=== PATIENT | male | born 1955 | race Hispanic/Latino ===

== ENCOUNTER 2019-03-19 15:06 | Outpatient (CLI) | payer BC ==
--- NOTE | 2019-03-19 15:40 | RAD ---
XR Knee Rt 3 View HISTORY: Effusion, right knee pain FINDINGS: No fracture or dislocation is identified. Degenerative changes are present. A joint effusion is seen.
== END 2019-03-19 15:07 | disposition home or self-care (01) ==
LOC: BICRAD 15:06
PROVIDERS: ATTEND Family Medicine
DX: M25.461 Effusion, right knee (principal); Z00.00 Encounter for general adult medical examination without abnormal findings; E11.65 Type 2 diabetes mellitus with hyperglycemia
CPT/HCPCS: 81001; 82043; 87086

== ENCOUNTER 2019-07-05 07:42 | Outpatient (CLI) | payer BC ==
--- NOTE | 2019-07-05 11:01 | CT ---
CT OF CHEST AND ABDOMEN AND PELVIS PERFOMED WITH INTRAVENOUS CONTRAST ENHANCEMENT: HISTORY: Patient diagnosed with colon cancer June 27. This is done for staging. FINDINGS: The lungs are clear of any infiltrative process. There is a superior segment left upper lobe pulmona ry nodule seen in the most superior aspect of the lower lobe. It abuts the major fissure and measure s 7 mm in size. No additional nodules are identified. No pleural effusion. There is no significant mediastinal or hilar adenopathy. There is no significant axillary lymphadeno bety noted. A pacemaker device is present. CT OF ABDOMEN PERFORMED WITH CONTRAST ENHANCEMENT: Liver shows some fatty change. There are 2 somewhat ill-defined low-attenuation densities within the right lobe, one which is in the region of the dome of the liver. This measures approximately [address] Hounsfield unit numbers are 50. The second lesion is also near the dome of the liver. It is approximately 2.3 cm. These would be suspicious for liver masses. The spleen and pancreas reg ions appear unremarkable. The gallbladder is also normal in appearance. Right and left adrenal glands are normal. Right and left kidneys are normal in size. A small exophy tic hypodensity involving the anterior cortex of the left kidney is most compatible with a cyst. The re is no significant periaortic adenopathy. There is a mass-like area within the ascending colon wit h pericolonic fat stranding. This appears to be the location of the patient's mass. There are some associated small ileocolic lymph nodes in this region. These are all in the 1 cm range. The appendi x is retrocecal in location, normal in size. CT OF PELVIS PERFORMED WITH CONTRAST ENHANCEMENT: Sigmoid diverticulosis is noted. Slight bladder wall prominence may be on the basis of some element of bladder outlet obstruction. No pelvic lymphadenopathy is demonstrated. Review of osseous structures shows arthritic changes of the spine. I do not see any lytic bony javed es. A small sclerotic density in the right side of the symphysis region is felt to represent a bone island. IMPRESSION: 1. Right colon mass. There is some pericolonic fat stranding and some small but slightly numerous i leocolic lymph nodes directly adjacent to this region. 2. There are 2 vague hypodense lesions within the right lobe of the liver which would have to be vie wed with suspicion for metastatic liver disease. 3. An 8 mm superior segment left lower lobe pulmonary nodule which is pleural based along the major fissure. Followup of this lesion is recommended. POS: TPC
[2019-07-05] MEDS ORDERED: Iopamidol 370 76% 100 ML VIAL ONE (15:06)
== END 2019-07-05 07:43 | disposition home or self-care (01) ==
LOC: CT 07:42
PROVIDERS: ATTEND Internal Medicine
DX: K63.89 Other specified diseases of intestine (principal); K76.89 Other specified diseases of liver; R91.1 Solitary pulmonary nodule
CPT/HCPCS: 71260; 74177; 82378; 82565; Q9967

== ENCOUNTER 2019-07-17 14:13 | Outpatient (CLI) | payer BC ==
--- NOTE | 2019-07-17 14:31 | PET ---
Radionucleotide PET scan with CT attenuation correction HISTORY: Colon cancer. Initial staging. FINDINGS: Physiologic uptake of radiotracer throughout the enteric system and along each urinary trac t. Muscular uptake about the shoulders and chest. Slightly increased uptake associated with degenerative changes of each acromioclavicular joint. Within the lateral dome of the right liver lobe, the hypermetabolic activity associated with the 2 ad jacent low density masses on recent CT is confluent, maximum SUV 9.5. In the region of subcentimeter nodule within the superior segment left lower lobe lung, no hypermetab olic activity is apparent. Increased activity associated with the large mass of the right colon shows maximum SUV of 23.8. No other areas of abnormal radiotracer uptake. IMPRESSION: Neoplasm of the right colon with metastatic lesion of the right liver lobe.
== END 2019-07-17 14:14 | disposition home or self-care (01) ==
LOC: PET 14:13
PROVIDERS: ATTEND Internal Medicine Hematology & Oncology
DX: C18.9 Malignant neoplasm of colon, unspecified (principal); C78.7 Secondary malignant neoplasm of liver and intrahepatic bile duct
CPT/HCPCS: 78815; A9552

== ENCOUNTER 2019-08-03 06:43 | Day surgery (SDC) | payer BC ==
[2019-08-03] MEDS ORDERED: Fentanyl 100 MCG/2 ML VIAL ONE (07:01)
[2019-08-03] MEDS ORDERED: Ampicillin 2 GM VIAL ONE (07:57)
[2019-08-03 07:58] LABS: #Basophils 0.1 thou/uL (0.0-0.2); #Eosinphils 0.1 thou/uL (0.0-0.7); #Lymphocytes 2.1 thou/uL (1.20-3.40); #Monocytes 0.7 thou/uL (0.11-0.59); %Basophils 1.3 % (0.0-1.0); %Eosinophils 1.3 % (0.0-10.0); %Lymphocytes 35.7 % (21.0-51.0); %Monocytes 11.1 % (0.0-10.0); %Neutrophils 50.6 % (42.0-75.0); Hemoglobin 8.1 g/dL (14.0-18.0); Mean Corpuscular HGB CONC 30.3 g/dL (32.0-36.0); Mean Corpuscular Hemoglobin 21.7 pg (27.0-31.0); Mean Corpuscular Volume 71.7 fL (78.0-98.0); Mean Platelet Volume 9.3 fL (7.4-10.4); Platelet Count 251 thou/uL (130-400); RBC Distribution Width 25.5 % (11.5-14.5); Red Blood Cell (RBC) Count 3.71 mill/uL (4.70-6.10)
[2019-08-03 08:24] LABS: Hypochromia MODERATE=16-30 cells (100X) (0-5/hpf); MDiff Complete? YES; Microcytosis MODERATE=15-30 cells (100X) (0-5/hpf); Platelet Morphology Comment Appears Adequate; Polychromasia SLIGHT = 2-3 cells (100X) (0-2/hpf); Reflex for Review?? NO
[2019-08-03 08:25] LABS: Anion Gap 10 mmol/L (10-20); BUN (Urea Nitrogen) 15 mg/dL (8.4-25.7); Calc. Creatinine Clearance 0 mL/min (70-130); Calcium 9.1 mg/dL (7.8-10.44); Carbon Dioxide 26 mmol/L (23-31); Chloride 106 mmol/L (98-107); Estimated GFR-MDRD 87; Glucose 137 mg/dL (80-115); Potassium 4.7 mmol/L (3.5-5.1); Sodium 137 mmol/L (136-145)
[2019-08-03] MEDS ORDERED: Bupivacaine 0.25% HCL 30 ML VIAL ONE (08:59)
[2019-08-03] MEDS ORDERED: Lidocaine 1% w/Epinephrine 1:100K 20 ML VIAL ONE (08:59)
--- NOTE | 2019-08-03 10:41 | RAD ---
XR Chest 1 View HISTORY: Mediport placement COMPARISON: 02/17/2015 FINDINGS: There has been placement of a right-sided Port-A-Cath with tip in the projection of the SVC . A left-sided pacemaker device is again seen. The heart size is enlarged. The lungs are well expanded without focal areas of consolidation, pneumothorax or pleural effusions. IMPRESSION: No radiographic evidence of acute cardiopulmonary process.
[2019-08-03] MEDS ORDERED: Lidocaine 1% PF 5 ML VIAL ONE (11:00)
[2019-08-03] MEDS ORDERED: PROPOFOL 200 MG/20 ML VIAL ONE (11:00)
[2019-08-03] MEDS ORDERED: ePHEDrine/0.9% NaCl/PF SYRINGE 50 mg/10 ml ONE (11:00)
--- NOTE | 2019-08-03 16:22 | PDOC.OP ---
Operative Note - Operative Note Operative Note: PROCEDURE: Right internal jugular MediPort placement with ultrasound and fluoroscopic guidance DATE OF PROCEDURE: 08/03/2019 SURGEON: Ruby Lopez M.D. COATING LINE WORKER: Bimal Smith MS 3 PREOPERATIVE DIAGNOSIS: Metastatic colon cancer POSTOPERATIVE DIAGNOSIS: Metastatic colon cancer HISTORY: Patient has been diagnosed with colon cancer metastatic to the liver. Chemotherapy has been recommended and a Mediport has been requested for this. OPERATIVE PROCEDURE IN DETAIL: After informed consent was obtained and appropriate preoperative antibiotics administered, the patient was taken to the operating room and placed in supine position and monitored anesthesia care was administered. The patient was then placed in Trendelenburg position and the patent compressible right internal jugular vein accessed easily on the first attempt under direct ultrasound guidance with excellent flow of dark venous non- pulsatile blood. A wire threaded easily and was confirmed to be in the compressible vein by ultrasound and with the tip in the superior vena cava by fluoroscopy. Additional local anesthesia was infused to the skin and subcutaneous tissues of the right neck and chest. A skin incision was made on the right chest and a subcutaneous pocket developed inferiorly. A Mediport was obtained and confirmed to fit in the subcutaneous pocket. This was secured inferiorly to the pectoralis fascia with a Prolene suture, which was clamped, but not tied. Mediport tubing was then tunneled from the chest to the right IJ access site subcutaneously. The dilator and sheath were then placed over the wire and the dilator and wire removed leaving the sheath in place. The clamped MediPort tubing was tunneled through the sheath, which was then split and removed leaving the MediPort tubing in place. The tubing was adjusted until the tip was confirmed by fluoroscopy to be in the superior vena cava just above the atrium. The tubing was clamped at the skin level and cut and the tubing secured to the port, which was then placed in the subcutaneous pocket. The previously placed suture was secured and two additional sutures were placed to fix the port in place within the pocket. The port was aspirated with the Guevara needle and had excellent flow of dark venous non-pulsatile blood and easily flushed without resistance. The subcutaneous tissues were closed with a running Monocryl suture, following which the skin was closed with a running subcuticular Monocryl suture. Dermabond dressings were placed. The course of the catheter was confirmed by fluoroscopy to be smooth with the tip appropriately located in the superior vena cava. The patient was taken back to recovery in good condition. Estimated blood loss was minimal. There were no complications. There were no specimens.
== END 2019-08-03 12:15 | disposition home or self-care (01) ==
LOC: SDC 06:43
PROVIDERS: ATTEND Surgery
PROC: 02HV33Z Insertion of Infusion Device into Superior Vena Cava, Percutaneous Approach (ICD-10-PCS; principal; 2019-08-03)
DX: C18.9 Malignant neoplasm of colon, unspecified (principal); C78.7 Secondary malignant neoplasm of liver and intrahepatic bile duct; E11.9 Type 2 diabetes mellitus without complications; I10 Essential (primary) hypertension; Z79.84 Long term (current) use of oral hypoglycemic drugs; Z79.899 Other long term (current) drug therapy; Z88.8 Allergy status to other drugs, medicaments and biological substances; Z95.0 Presence of cardiac pacemaker
CPT/HCPCS: 36415; 71045; 80048; 85025; C1788; J0290; J0690; J1642; J2001; J2704; J3010; S0020

== ENCOUNTER 2019-08-13 01:00 | Emergency (ER) | payer BC ==
--- NOTE | 2019-08-13 08:44 | RAD ---
LUMBAR SPINE 3 VIEWS: Date: 08/13/19 HISTORY: Back pain. FINDINGS: Lumbar vertebra maintain height and alignment. There are degenerative hypertrophic changes. Large spu r projects laterally on the right at L2-3. Anterior bridging osteophytes at L5-S1. Loss of disc space at L5-S1. Moderate facet hypertrophy at L4-5 and L5-S1. No evidence of spondylolisthesis. No kenton ryland deformity or acute fracture identified. IMPRESSION: Degenerative changes as described. POS: NAHID
== END 2019-08-13 03:30 | disposition home or self-care (01) ==
LOC: ERS 01:00
DX: M54.5 Low back pain (principal); E11.9 Type 2 diabetes mellitus without complications; I10 Essential (primary) hypertension
CPT/HCPCS: 72100

== ENCOUNTER 2020-02-07 07:09 | Day surgery (SDC) | payer BC ==
[2020-02-07] MEDS ORDERED: Sodium Bicarbonate 2.5 MEQ/5 ML VIAL ONE (07:52)
[2020-02-07] MEDS ORDERED: Lidocaine 1% PF 5 ML VIAL ONE (07:53)
[2020-02-07 07:54] LABS: #Eosinphils 0.1 thou/uL (0.0-0.7); #Lymphocytes 2.1 thou/uL (1.20-3.40); #Monocytes 0.9 thou/uL (0.11-0.59); #Neutrophils 4.6 thou/uL (1.40-6.50); %Basophils 0.1 % (0.0-1.0); %Eosinophils 0.7 % (0.0-10.0); %Lymphocytes 27.6 % (21.0-51.0); %Monocytes 11.8 % (0.0-10.0); %Neutrophils 59.7 % (42.0-75.0); Hemoglobin 12.5 g/dL (14.0-18.0); Mean Corpuscular HGB CONC 32.9 g/dL (32.0-36.0); Mean Corpuscular Hemoglobin 32.5 pg (27.0-31.0); Mean Corpuscular Volume 98.8 fL (78.0-98.0); Mean Platelet Volume 8.4 fL (7.4-10.4); Platelet Count 97 thou/uL (130-400); RBC Distribution Width 15.4 % (11.5-14.5); Red Blood Cell (RBC) Count 3.85 mill/uL (4.70-6.10); White Blood Cell (WBC) Count 7.6 thou/uL (4.8-10.8)
[2020-02-07 08:05] LABS: INR-International Normal Ratio 1.5; Prothrombin Time 18.1 sec (12.0-14.7)
--- NOTE | 2020-02-07 08:58 | ULT ---
Exam: Ultrasound guided thoracentesis HISTORY: Right-sided pleural effusion Comparison 01/28/2020 FINDINGS: Successful right sided thoracentesis. A total of 2 L of yellow color pleural fluid was evac uated. There are no immediate or postprocedure complications TECHNIQUE: Consent obtained to perform a right sided cyst. Right hemithorax was evaluated. Skin was p repped and draped in a sterile fashion. 1% lidocaine, buffered with sodium bicarbonate was used for local anesthesia. Under sonographic guidance, a 5 [place] UV catheter was advanced in the pleural spac e. Via vacuum bottles, 2 L of yellow color pleural fluid was aspirated. Patient tolerated the procedure well. No immediate or postprocedure complications IMPRESSION: Successful right-sided thoracentesis with ultrasound guidance
--- NOTE | 2020-02-07 09:04 | RAD ---
Exam: Upright inspiratory and expiratory chest radiograph HISTORY: Status post right-sided ultrasound-guided thoracentesis COMPARISON: 02/04/2020, 01/28/2020 FINDINGS: Portable upright inspiratory and expiratory chest radiograph demonstrate a left-sided trans venous pacemaker, unchanged in lead position. Stable right-sided Port-A-Cath. Normal cardiac silhouette. No significant pericardial fluid. There are bibasilar lung parenchymal opacities which may represent atelectasis, pneumonia or aspiration. No pneumothorax IMPRESSION: 1. No significant pleural effusion 2. No evidence of pneumothorax.
[2020-02-07 09:13] VITALS: BP 96/63; TEMP 96.2; BMI 41.1
[2020-02-07] MEDS ORDERED: Sodium Chloride 0.9% 10 ML ONE (10:11)
--- NOTE | 2020-02-07 10:26 | RAD ---
Exam: Upright inspiratory and right chest radiograph COMPARISON: 01/28/2020 at 8:55 AM HISTORY: Right-sided thoracentesis FINDINGS: Upright inspiratory chest radiograph demonstrates stable cardiac silhouette, atherosclerosi s and pleural/parenchymal changes lung bases. Stable left-sided transvenous pacemaker and right-sided Port-A-Cath. No pneumothorax IMPRESSION: No pneumothorax
[2020-02-07 10:41] LABS: PTT Greater than 250.0 sec (22.9-36.1)
== END 2020-02-07 10:15 ==
LOC: ULT 07:09
PROVIDERS: ATTEND Internal Medicine
PROC: 0BJQ3ZZ Inspection of Pleura, Percutaneous Approach (ICD-10-PCS; principal; 2020-02-07)
PROC: BB4BZZZ Ultrasonography of Pleura (ICD-10-PCS; principal; 2020-02-07)
DX: J90 Pleural effusion, not elsewhere classified (principal); M33.20 Polymyositis, organ involvement unspecified; I10 Essential (primary) hypertension; E11.9 Type 2 diabetes mellitus without complications; I73.9 Peripheral vascular disease, unspecified; Z79.4 Long term (current) use of insulin; Z79.899 Other long term (current) drug therapy
CPT/HCPCS: 71045; 76942; 85610; 85730; J1642; J2001

== ENCOUNTER 2020-02-25 07:58 | Day surgery (SDC) | payer BC ==
[2020-02-21 11:54] VITALS: BMI 40.2
[~2020-02-25 07:58] MED LIST: Prevnar 13-Val Conj/PF 0.5 ML SYRINGE IM ONE
[2020-02-25] MEDS ORDERED: Lidocaine 1% PF 5 ML VIAL ONE (08:17)
[2020-02-25] MEDS ORDERED: Sodium Bicarbonate 2.5 MEQ/5 ML VIAL ONE (08:17)
--- NOTE | 2020-02-25 09:37 | ULT ---
Sonographic guided paracentesis HISTORY: Symptomatic ascites. FINDINGS: After explaining the procedure and answering all questions, sonographic survey showed free fluid throughout the abdomen. Largest pocket in the right abdomen. Sterile technique, buffered local anesthesia, sonographic guidance, and a right lateral approach were used to carefully advance a 19-gauge Yueh needle and catheter into the free fluid. Catheter was left to drain a total volume of 3.5 L light yellow liquid. Catheter was removed with minimal fluid remaining. Patient tolerated the procedure well and was dismi ssed in good condition. IMPRESSION : Technically successful sonographic guided paracentesis. 3.5 L fluid.
[2020-02-25 10:54] VITALS: BP 101/65; TEMP 97.6
== END 2020-02-25 09:45 | disposition home or self-care (01) ==
LOC: ULT 07:58
PROVIDERS: ATTEND Physician Assistant Medical
PROC: BW40ZZZ Ultrasonography of Abdomen (ICD-10-PCS; principal; 2020-02-25)
PROC: 0W9G3ZZ Drainage of Peritoneal Cavity, Percutaneous Approach (ICD-10-PCS; principal; 2020-02-25)
DX: R18.8 Other ascites (principal); I10 Essential (primary) hypertension; E11.9 Type 2 diabetes mellitus without complications; D64.9 Anemia, unspecified; C18.9 Malignant neoplasm of colon, unspecified; C78.7 Secondary malignant neoplasm of liver and intrahepatic bile duct; K21.9 Gastro-esophageal reflux disease without esophagitis; I81 Portal vein thrombosis; Z79.4 Long term (current) use of insulin; Z79.899 Other long term (current) drug therapy; Z95.0 Presence of cardiac pacemaker
CPT/HCPCS: 49083; J2001

== ENCOUNTER 2020-03-13 15:36 | Inpatient (IN) | payer BC, OTHER ==
[2020-03-13 16:44] LABS: #Lymphocytes 0.5 thou/uL (1.20-3.40); #Monocytes 0.3 thou/uL (0.11-0.59); #Neutrophils 13.6 thou/uL (1.40-6.50); %Basophils 0.2 % (0.0-1.0); %Lymphocytes 3.7 % (21.0-51.0); %Monocytes 2.3 % (0.0-10.0); %Neutrophils 93.7 % (42.0-75.0); Mean Corpuscular HGB CONC 32.8 g/dL (32.0-36.0); Mean Corpuscular Hemoglobin 32.5 pg (27.0-31.0); Mean Platelet Volume 10.7 fL (7.4-10.4); Platelet Count 85 thou/uL (130-400); Red Blood Cell (RBC) Count 3.37 mill/uL (4.70-6.10); White Blood Cell (WBC) Count 14.5 thou/uL (4.8-10.8)
[2020-03-13 16:45] LABS: Base Excess-Venous 2.2 mmol/L (-2.0 to 3.0); Bicarbonate (HCO3v) 26.9 mmol/L (22.0-28.0); CO2 Tension (PvCO2) 41.1 mmHg (40.0-50.0); Calcium, Ionized 1.27 mmol/L (See Comments:); Chloride 96 mmol/L (98-107); Hemoglobin - Calc 11.9 g/dL (14.0-18.0); Potassium 5.2 mmol/L (3.5-5.1); Sodium 136 mmol/L (138-145); T. Carbon Dioxide 28.1 mmol/L (22.0-28.0); vO2 Saturation-calc 64.1 % (60.0-85.0)
--- NOTE | 2020-03-13 16:45 | RAD ---
Exam: Chest one view HISTORY:Altered mental status. Uterine cancer. Comparison: 01/28/2020 FINDINGS: Lines and tubes: Stable left-sided dual-lead transvenous pacemaker and right-sided Port-A-Cath. Cardiac silhouette:Normal cardiac silhouette Aorta: Atherosclerosis Pulmonary vessels: Normal Costophrenic angles: Clear LUNGS: No masses or consolidation. Chronic changes in the lung bases. Pneumothorax: None Osseous abnormalities: None IMPRESSION: 1. Atherosclerosis 2. No acute cardiopulmonary process. 3. Chronic changes in the lung bases.
[2020-03-13 16:49] LABS: INR-International Normal Ratio 1.5; PTT 26.6 sec (22.9-36.1); Prothrombin Time 17.8 sec (12.0-14.7)
[2020-03-13 17:03] LABS: ALT (SGPT) 93 U/L (8-55); AST (SGOT) 66 U/L (5-34); Albumin 2.1 g/dL (3.4-4.8); Alkaline Phosphatase 391 U/L (40-110); Anion Gap 19 mmol/L (10-20); BUN (Urea Nitrogen) 83 mg/dL (8.4-25.7); CK (CPK) 70 U/L (30-200); Calc. Creatinine Clearance 0 mL/min (70-130); Calcium 9.5 mg/dL (7.8-10.44); Carbon Dioxide 23 mmol/L (23-31); Chloride 95 mmol/L (98-107); Estimated GFR-MDRD 37; Globulin 3.7 g/dL (2.4-3.5); Glucose 246 mg/dL (80-115); Potassium 5.2 mmol/L (3.5-5.1); Protein, Total 5.8 g/dL (5.8-8.1); Sodium 132 mmol/L (136-145)
[2020-03-13 17:20] LABS: Bacteria/HPF 4+ HPF (None Seen); Bilirubin Negative (Negative); Blood, Urine 2+ (Negative); Clarity Turbid (Clear); Glucose, Urine (Dipstick) Normal (Negative); Ketone, Urine Negative (Negative); Leukocyte 250 Leu/uL (Negative); Nitrite Negative (Negative); Protein, Urine (Dipstick) Negative (Neg-Trace); RBC/HPF 0-3 HPF (0-3); Specific Gravity, Urine 1.016 (1.002-1.036); Squamous Epithelial None Seen HPF (0-3); Urobilinogen 3 mg/dL (Less than 2); WBC/HPF 21-50 HPF (0-3)
[2020-03-13 17:26] LABS: CKMB 5.1 ng/mL (0-6.6)
[2020-03-13] MEDS ORDERED: cefTRIAXone\\ROCEPHIN 2 GM VIAL ONE (17:36)
[2020-03-13] MEDS ORDERED: Ondansetron PF 4 MG/2 ML Vial ONE (17:36)
--- NOTE | 2020-03-13 18:30 | CT ---
CT HEAD WITHOUT IV CONTRAST COMPARISON: None HISTORY: Altered mental status. TECHNIQUE: Axial CT imaging at 5 mm intervals from vertex through skull base without contrast FINDINGS: There is no evidence of an acute infarction, hemorrhage, mass effect, or midline shift. The ventricul ar system is normal in size, shape, and position. Visualized paranasal sinuses are clear. Osseous structures appear intact. IMPRESSION: 1. No acute intracranial abnormality demonstrated.
[2020-03-13] MEDS ORDERED: Dextrose 50% Abboject 50 ML SYRINGE SLOW IVP PRN (19:30)
[2020-03-13] MEDS ORDERED: Dextrose 5% in Water 1,000 ML IV PRN (19:30)
[2020-03-13 19:54] LABS: Troponin I 0.035 ng/mL (< 0.028)
[2020-03-13] MEDS: Sodium Chloride 0.9% 1,000 ML IV SCH (22:08)
[2020-03-13] MEDS: methylPREDNISolone Sod Succ/PF 125 MG/2 ML VIAL IVP SCH (22:08)
[2020-03-13] MEDS: Rifaximin 550 MG TAB PO SCH (22:09)
[2020-03-13] MEDS ORDERED: Ondansetron PF 4 MG/2 ML Vial IVP SCH (22:45)
[2020-03-13] MEDS: HumaLOG 300 UNITS/3 ML VIAL SC PRN (23:09)
[2020-03-13 23:35] LABS: Troponin I 0.044 ng/mL (< 0.028)
[2020-03-14 01:07] VITALS: BMI 26.4
[2020-03-14] MEDS ORDERED: Ondansetron PF 4 MG/2 ML Vial IVP PRN (01:35)
--- NOTE | 2020-03-14 02:15 | HP ---
HISTORY OF PRESENT ILLNESS: This patient is a 64-year-old male with a history of colon cancer metastatic to the liver. The patient has undergone a hemicolectomy as well as right hepatectomy. He is subsequently admitted to the hospital back in early January for what appeared to be some dehydration. 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 The patient was started on steroids, and subsequently has been seen at [facility], where he had a muscle biopsy obtained, although results of that are still pending. In the interim, the patient has not been receiving chemotherapy. The family has talked to their PCP who has recommended hospice; however, apparently Dr. Ambrose felt that the patient had evidence of remission at the time and this did not encourage the family to pursue hospice at that juncture. The patient has been resistant to drink adequate fluids at home. He has become progressively weaker to the point he is not able to ambulate. He has become increasingly confused and to the point that he is now essentially unresponsive. The patient subsequently presents to the emergency department. In the emergency department, the patient was found to have elevated potassium at 5.2, he has received some calcium chloride and some fluids. There was some concern regarding possible urinary tract infection. He was given a dose of Rocephin and lactulose for an elevated ammonia level. PAST MEDICAL HISTORY: Noted for the above mentioned colon cancer with metastatic disease to the liver; diabetes mellitus type 2, which has been very poorly controlled of late; hypertension; pacemaker placement in January of 2015. The patient has experienced some liver failure following his partial hepatectomy. He has undergone prior thoracentesis and underwent paracentesis on 02/25/2020. Portal vein thrombosis. PAST SURGICAL HISTORY: Hemicolectomy and liver resection as well as pacemaker placement and port placement. FAMILY HISTORY: Colon cancer and diabetes on his maternal family side. SOCIAL HISTORY: Nonsmoker, nondrinker, nondrug user. He lives at home with his family. He has daughter who is here with him today and supportive him. He is currently full code, and his and daughter would be his surrogate decision maker should that become necessary. REVIEW OF SYSTEMS: The patient is unable to give any history due to his encephalopathy. However, the patient's daughter reports he drinks very little fluids and is highly resistant to that. He has had poor p.o. intake and no appetite. She reports that he has had diarrhea since his liver surgery, but over the last several days, has not had a bowel movement at all, that is the extent of the available information for review of systems. ALLERGIES: NONE. CURRENT MEDICATIONS: 1. Metformin 1000 mg b.i.d. 2. Lasix 40 mg daily. 3. Ferrous sulfate 325 daily. 4. Prednisone 80 mg daily. 5. Simethicone 80 mg t.i.d. 6. Pepcid 20 mg daily. 7. Spironolactone 50 mg daily. 8. Lantus 10 units subcu daily. 9. Eliquis 5 mg b.i.d. PHYSICAL EXAMINATION: VITAL SIGNS: Blood pressure 111/63, pulse 100, respirations 14, temperature 97.9, O2 sats 97% on room air. GENERAL APPEARANCE: The patient is an encephalopathic. He does open his eyes, but he does not make eye contact nor does he track. He is not interactive. HEENT: Pupils are slightly opaque. They do react sluggishly and slight scleral icterus rather. No OP lesions. NECK: Supple and symmetric. HEART: Regular rate and rhythm. Borderline tachycardia. LUNGS: Clear to auscultation bilaterally with no wheezes or rales. ABDOMEN: Soft, nontender, and nondistended. There is some minimal ascitic fluid noted. EXTREMITIES: No cyanosis or clubbing. There is about 2+ pitting edema. PSYCH: The patient is encephalopathic. NEUROLOGIC: The patient cannot cooperate with exam. SKIN: There are several scabbed areas over the lower extremities, which are generally small. LABORATORY DATA: White count 14.5, hemoglobin 11, platelets 85. INR is 1.5 and PTT is 26.6. VBG: PH 7.42, pCO2 41. Sodium is 132, potassium 3.5, chloride 95, CO2 is 23, BUN is 83, creatinine is 1.85, glucose 246, AST 66, ALT 93, total bilirubin is 2, alkaline phosphatase 391, ammonia 101. Troponin is 0.03. BNP 131.9. Urinalysis, turbid with 2+ blood, positive urobilinogen, positive leukocyte esterase, 0 to 3 red cells, 21 to 50 white cells, 4+ bacteria. Chest x-ray shows atherosclerotic disease, chronic changes in the lung bases, nothing acute. CT of the brain shows no acute intracranial abnormalities noted. DIAGNOSTIC DATA: EKG, paced rhythm and bois forte rhythms at 102. IMPRESSION AND PLAN: 1. Acute hepatic encephalopathy. This patient has a history of liver disease following a partial hepatectomy resulting in some ascites and paracenteses, now is demonstrating hyperammonemia with fairly classic signs and symptoms of hepatic encephalopathy. The patient will receive IV fluids. We will start lactulose and Xifaxan. GI consult. 2. Acute kidney injury. The patient's GFR is highly variable, but typically runs closer to the 70s and it is 37 today with prerenal indices. We will give IV fluids. Can continue to monitor. May be some hepatorenal syndrome given his albumin of 2.1. 3. Hyperkalemia secondary to acute kidney injury. Continue with IV fluids should resolve this. 4. Mild hyponatremia likely secondary to dehydration, acute kidney injury, should improve with fluids. 5. History of metastatic colon cancer, currently not receiving chemotherapy. Consult Oncology. 6. 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 The patient has been on high-dose steroids. We will need to continue those for now. 7. Elevated LFTs. These are fairly consistent with his baseline numbers following his surgery, although his bilirubin is slightly higher. Again we will ask GI input. Job ID: [id number]
[2020-03-14] MEDS: methylPREDNISolone Sod Succ/PF 125 MG/2 ML VIAL IVP SCH ×3 (02:51→09:24)
[2020-03-14 04:37] LABS: Anion Gap 17 mmol/L (10-20); BUN (Urea Nitrogen) 75 mg/dL (8.4-25.7); Calc. Creatinine Clearance 52 mL/min (70-130); Carbon Dioxide 24 mmol/L (23-31); Chloride 100 mmol/L (98-107); Estimated GFR-MDRD 47; Glucose 223 mg/dL (80-115); Potassium 4.9 mmol/L (3.5-5.1); Sodium 136 mmol/L (136-145)
[2020-03-14 05:06] LABS: Band 22 % (5-11); Lymphocytes 3 % (21-51); MDiff Complete? YES; Mean Corpuscular HGB CONC 32.5 g/dL (32.0-36.0); Mean Corpuscular Hemoglobin 32.2 pg (27.0-31.0); Mean Corpuscular Volume 98.9 fL (78.0-98.0); Mean Platelet Volume 10.7 fL (7.4-10.4); Metamyelocyte 2 % (0-0); Monocytes 3 % (0-10); Myelocyte 1 % (0-0); Neutrophil 69 % (42-75); Platelet Count 62 thou/uL (130-400); Platelet Morphology Comment Appears Decreased; RBC Distribution Width 15.2 % (11.5-14.5); Red Blood Cell (RBC) Count 3.72 mill/uL (4.70-6.10); White Blood Cell (WBC) Count 18.4 thou/uL (4.8-10.8)
[2020-03-14] MEDS: HumaLOG 300 UNITS/3 ML VIAL SC PRN ×4 (06:33→22:28)
[2020-03-14] MEDS: Enoxaparin Sodium 80 MG/0.8 ML SYRINGE SC SCH ×2 (09:24→21:56)
[2020-03-14] MEDS: Rifaximin 550 MG TAB PO SCH ×2 (09:24→21:57)
[2020-03-14] MEDS: Sodium Chloride 0.9% 1,000 ML IV SCH ×2 (09:25→16:47)
--- NOTE | 2020-03-14 10:53 | PDOC.HOSPP ---
- Subjective Encounter Date: 03/14/20 Encounter Time: 16:00 Subjective: Patient seen and examined for encephalopathy. Mentation improving. Had several BMs after kayexalate. No new focal deficits. No new complaints. No overnight events - Objective Vital Signs & Weight: Vital Signs (12 hours) Temp Pulse Resp BP Pulse Ox 03/14/20 07:52 97.6 F 97 14 110/67 99 03/14/20 04:38 97.6 F 100 18 110/67 100 03/14/20 01:45 107/62 Weight Weight 163 lb 6.4 oz Result Diagrams: 03/15/20 04:28 03/15/20 02:47 Additional Labs: Accuchecks 03/14/20 03/13/20 05:45 21:19 POC Glucose 202 H 232 H Radiology Reviewed by me: Yes (CXR - no infiltrate) EKG Reviewed by me: Yes (Tele SR) Hospitalist ROS - Review of Systems Respiratory: denies: cough, dry, shortness of breath, hemoptysis, SOB with excertion, pleuritic pain, sputum, wheezing, other Cardiovascular: denies: chest pain, palpitations, orthopnea, paroxysmal noc. dyspnea, edema, light headedness, other - Medication Medications: Active Medications Generic Name Dose Route Start Last Admin Trade Name Freq PRN Reason Stop Dose Admin Enoxaparin Sodium 70 mg 03/14/20 09:00 03/14/20 09:24 Lovenox SC 70 mg 0900,2100 MAI Administration Sodium Chloride 1,000 mls @ 100 mls/hr 03/13/20 20:15 03/14/20 09:25 Normal Saline 0.9% IV 1,000 mls .Q10H MAI Administration Insulin Human Lispro 0 units 03/13/20 19:30 03/14/20 06:33 Humalog SC 4 unit .MODERATE SLIDING SC PRN Administration Moderate Correctional Scale Insulin Human Lispro 0 units 03/13/20 22:36 03/13/20 23:09 Humalog SC 2 unit .BEDTIME SLIDING SC PRN Administration Bedtime Correctional Scale Lactulose 20 gm 03/13/20 21:00 03/14/20 09:24 Lactulose PO 20 gm TID MAI Administration Methylprednisolone Sodium Succinate 80 mg 03/14/20 04:00 03/14/20 09:24 Solu-Medrol IVP 80 mg 0400,1000,1600,2200 MAI Administration Rifaximin 550 mg 03/13/20 21:00 03/14/20 09:24 Xifaxan PO 550 mg BID MAI Administration - Exam General Appearance: ill appearing Heart: RRR, no gallops, no rubs, normal peripheral pulses Respiratory: no wheezes, no rales, normal chest expansion, rhonchi Gastrointestinal: soft, normal bowel sounds, no guarding, no rigidity Extremities: no cyanosis, no clubbing, 1+ LE edema Extremities - other findings: B/L LE skin lesions Neurological: no new deficit Psychiatric: normal affect, A&O x 3 Hosp A/P - Plan DVT proph w/lovenox, DVT proph w/SCDs Toxic Metabolic Encephalopathy Hepatic Encephalopathy UTI-POA BRODERICK on CKD 2 h/o ?Polymyositis - on steroids Hyperkalemia Hyponatremia Abn LFTs DM2 HTN h/o Portal vein thrombosis -on anticoagulation h/o Colon CA with mets PLAN: Cont Lactulose with Rifaximin Cont Neurochecks Cont gentle IVF Cont steroids Cont anticoag Cont sliding scale AM labs including ammonia Case d/w GI Cont other meds as above
[2020-03-14 11:48] LABS: SARS-CoV-2 MS2 Positive; SARS-CoV-2 N Gene Negative; SARS-CoV-2 S Gene Negative; SARS-CoV-2 by NAA Not Detected (NotDetected); SARS-CoV-2 orf1ab Negative
[2020-03-14] MEDS: Albumin 25% 25 GM/100 ML BOT IVPB SCH ×2 (14:46→22:29)
[2020-03-14] MEDS ORDERED: Meropenem 1 GM in Sodium Chloride 0.9% 100 ML IVPB SCH (16:00)
--- NOTE | 2020-03-14 16:05 | CON ---
DATE OF CONSULTATION: REASON FOR CONSULTATION: Colon cancer. HISTORY OF PRESENT ILLNESS: Mr. Boyer is a 64-year-old gentleman who had stage IV adenocarcinoma of the ascending colon. He underwent chemotherapy and then a liver resection and hemicolectomy. Shortly after his hemicolectomy, he was admitted for elevated LFTs and rhabdomyolysis. His labs came back with an PEDRO, double- stranded DNA, SSA positive and he was sent home on steroids for polymyositis. He followed up with Rheumatology at [facility] in [place]. He has been on high- dose steroids. He presented to our clinic earlier this week with significant weakness. He had bilateral lower extremity edema with multiple wounds on his lower extremity. His family brought him to the emergency room for further treatment. His ammonia was 101 on arrival. Creatinine was mildly elevated. He was admitted and started on IV fluids and antibiotics. He is more alert today and denies any complaints. PAST MEDICAL HISTORY: 1. Stage IV adenocarcinoma of the ascending colon, in remission since hemicolectomy and liver resection in 11/2019. 2. History of alcoholic use. 3. Portal vein thrombosis. 4. Diabetes. PAST SURGICAL HISTORY: 1. Hemicolectomy and liver resection. 2. Pacemaker placement. ALLERGIES: NO KNOWN DRUG ALLERGIES. HOME MEDICATIONS: 1. Apixaban. 2. Atorvastatin. 3. Iron. 4. Lasix. 5. Pepcid. 6. Prednisone. 7. Simethicone. 8. Metformin. 9. Tramadol. FAMILY HISTORY: Sister had colon cancer. SOCIAL HISTORY: , has 6 children. Lives with his spouse. No alcohol, tobacco, or illicit drug use. REVIEW OF SYSTEMS: Positive for edema, weakness, and numbness and tingling to his hands. PHYSICAL EXAMINATION: VITAL SIGNS: Temperature is 97.6, pulse is 99, respiratory rate 14, BP is 121/ 69, and he is 99% on room air. GENERAL: This is a chronically ill-appearing male, in no acute distress. HEENT: Normocephalic and atraumatic. Pupils equal and reactive to light. NECK: Supple. CV: Regular rate and rhythm. LUNGS: Clear anterior. ABDOMEN: Soft. Bowel sounds are positive. EXTREMITIES: He has 2+ bilateral lower extremity edema. SKIN: No rash. NEUROLOGIC: Nonfocal. PERTINENT LABORATORY DATA AND X-RAYS: Current WBCs are 18.4, hemoglobin 12, hematocrit 36.8, and platelet count is 62,000. He has 69% neutrophils, 22% bands, and 3% lymphocytes. PT 17.8, INR is 1.5, and PTT is 26.6. Sodium 136, potassium 4.9, chloride 100, CO2 is 24, BUN 75, creatinine 1.5, and calcium 9. Bilirubin is 2, AST 66, ALT is 93, alkaline phosphatase is 391, and ammonia is 101. Creatine kinase is 70, CK-MB is 5.1, and troponin 0.03. Serum total protein 5.8, albumin 2.1, and globulin 3.7. Urine had 4+ bacteria. COVID-19 PCR is negative. A brain CT showed no acute findings. Chest x-ray showed no acute findings. ASSESSMENT: 1. 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 2. Stage IV adenocarcinoma status post hemicolectomy and liver resection. 3. Acute kidney injury. 4. Toxic metabolic encephalopathy. DISCUSSION: The patient has been given IV fluids and lactulose and his mental status has returned to baseline. There has been discussion regarding possible hospice as he is continued to grow weak. Discussed in detail with Dr. Ambrose. His cancer is in remission. We would recommend that he follow up with his data steward at [facility] and discuss hospice further if he continues to worsen. Hospice may be appropriate, but we feel his health is declining from myositis rather than his cancer. Thank you for the consult. We will follow remotely. Job ID: [id number] [id number]
[2020-03-14] MEDS ORDERED: predniSONE 50 MG TAB PO SCH (17:00)
[2020-03-14] MEDS: MEROPENEM 1 GM/50 ML 1 GM in Premix Bag 1 BAG IVPB SCH (17:30)
[2020-03-14] MEDS ORDERED: predniSONE 20 MG TAB PO SCH (18:15)
[2020-03-15] MEDS: MEROPENEM 1 GM/50 ML 1 GM in Premix Bag 1 BAG IVPB SCH ×3 (01:13→18:31)
[2020-03-15 03:19] LABS: ALT (SGPT) 72 U/L (8-55); AST (SGOT) 59 U/L (5-34); Albumin 2.7 g/dL (3.4-4.8); Alkaline Phosphatase 306 U/L (40-110); Anion Gap 12 mmol/L (10-20); BUN (Urea Nitrogen) 54 mg/dL (8.4-25.7); Bilirubin, Total 2.2 mg/dL (0.2-1.2); Calc. Creatinine Clearance 60 mL/min (70-130); Calcium 8.8 mg/dL (7.8-10.44); Carbon Dioxide 31 mmol/L (23-31); Chloride 99 mmol/L (98-107); Estimated GFR-MDRD 56; Globulin 2.7 g/dL (2.4-3.5); Glucose 525 mg/dL (80-115); Phosphorus 2.5 mg/dL (2.3-4.7); Potassium 4.7 mmol/L (3.5-5.1); Protein, Total 5.4 g/dL (5.8-8.1); Sodium 137 mmol/L (136-145)
[2020-03-15 05:06] LABS: Band 2 % (5-11); Hemoglobin 8.8 g/dL (14.0-18.0); Hypochromia SLIGHT = 6-15 cells (100X) (0-5/hpf); Lymphocytes 2 % (21-51); MDiff Complete? YES; Mean Corpuscular HGB CONC 31.4 g/dL (32.0-36.0); Mean Corpuscular Hemoglobin 31.7 pg (27.0-31.0); Mean Platelet Volume 11.3 fL (7.4-10.4); Neutrophil 96 % (42-75); Platelet Count 58 thou/uL (130-400); Platelet Morphology Comment Appears Decreased; RBC Distribution Width 15.1 % (11.5-14.5); Red Blood Cell (RBC) Count 2.78 mill/uL (4.70-6.10); Target Cells SLIGHT = 2-5 cells (100X) (0-1/hpf)
--- NOTE | 2020-03-15 06:13 | CON ---
DATE OF CONSULTATION: 03/14/2020 REASON FOR CONSULTATION: Hepatic encephalopathy. HISTORY OF PRESENT ILLNESS: Mr. Boyer is a pleasant 64-year-old gentleman, who is known to me from his last admission when he was here from 01/22 to 01/30. During that time, he had presented with severe muscle pain, renal failure, and seemed to have rhabdomyolysis. He had a history of previous colon cancer with resection and a partial hepatectomy. The resection of liver mass had been on December 17. Apparently, there were no signs of cirrhosis. He has no prior history of liver disease before that. 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 He was discharged. He was sent home on high-dose steroids and had a muscle biopsy at [facility] and saw a litigation docket manager, apparently that workup is pending. During that admission, he also was found to have a clot in his portal vein and he was started on anticoagulation. He required thoracentesis while he was here, then after discharge, required a paracentesis. He was admitted to the hospital yesterday evening for increasing weakness and confusion. He was essentially unresponsive when he presented. He had a potassium of 5.2 and ammonia of over 100. He was given some lactulose and some Rocephin in the emergency room. He had a wound on his right leg, which was cultured and shows Staph and gram-negative rods. Urine cultures preliminarily negative and blood cultures are preliminarily negative. The nurses note presently, he is much more alert, he just feels weak. He denies muscle pain. He denies abdominal pain. He denies vomiting or diarrhea. PAST MEDICAL HISTORY: 1. Colon cancer discovered in 06/2019, metastatic, status post resection of the mass and then resection of the liver in November of this year, right hepatectomy. 2. Type 2 diabetes. 3. Hypertension. 4. Pacemaker in January of 2015. 5. Development of portal vein thrombus last admission, on anticoagulation. 6. Fluid overload with requiring thoracentesis and paracentesis, most recently on 02/25/2020. It is unclear if this is related to recurrent malignancy or underlying liver disease. It seems he has had some decompensation in hepatic function after hepatectomy. It is unclear if that is related to the rhabdomyolysis or polymyositis that he developed or there may have actually had some underlying liver disease. Evaluation for liver disease was negative at last hospitalization. PAST SURGICAL HISTORY: As above. Additionally, he had a history of port placement. FAMILY HISTORY: Colon cancer, diabetes in his mom's side. SOCIAL HISTORY: Denies alcohol, drugs, or tobacco. Lives with his family. REVIEW OF SYSTEMS: Denies any dysphagia, odynophagia, melena, hematochezia, or hematemesis. ALLERGIES: NONE. MEDICATIONS: At home; 1. Metformin. 2. Lasix 40 mg a day. 3. Iron 325 mg a day. 4. Prednisone 80 mg a day. 5. Simethicone 80 mg t.i.d. 6. Pepcid 20 mg a day. 7. Spironolactone 50 mg daily. 8. Lantus insulin 10 daily. 9. Eliquis 5 mg a day. Medications here; 1. Albumin 25 g IV q.8. 2. D5W water. 3. Lovenox 70 subcu q.12. 4. Glucagon p.r.n. 5. Humalog insulin sliding scale. 6. Lactulose 20 g t.i.d. 7. Meropenem started today. 8. Zofran. 9. Prednisone 40 mg b.i.d. 10. Xifaxan 550 b.i.d. PHYSICAL EXAMINATION: VITAL SIGNS: Temperature 97.6, pulse 99, blood pressure 120/69. He has a port palpable over the right clavicle. He has no adenopathy in neck. HEENT: Oropharynx without lesions. NECK: Appears supple without any adenopathy. LUNGS: Clear. HEART: Regular rate and rhythm without clicks or murmurs. ABDOMEN: Soft, nontender, slightly protuberant with possible fluid wave. No shifting dullness EXTREMITIES: Reveal trace edema in the left and almost none on the right. He has a wound dressed in the right leg. Extremities reveal no clubbing or cyanosis. LABORATORY DATA: White count 18.4, hemoglobin 12, platelet count 62,000, 22% bands. His white count was 14,000 yesterday. INR 1.5, PT 17.8, and PTT is 26, that was yesterday. Sodium 136, potassium 4.9, BUN and creatinine are 75 and 1.5, glucose 223, calcium 9, bilirubin is 2, AST and ALT are 66 and 93, alkaline phosphatase is 391. Ferritin was 6.2 on 01/20/2019. Albumin 2.1, protein 5.8. Troponin 0.030, CK was 70. Ammonia was 101. AFP was 10.2 on 01/27/2020. CEA was 4.8 on 03/10, it was 20 on 09/24/2019. TSH was normal at 2.2. B12 was normal. PEDRO was positive on 01/30 with SSA of 214 and double-stranded DNA of 20, smooth muscle antibody of 18. Hepatitis A, B, and C were negative. ASSESSMENT: 1. Hepatic encephalopathy, this would indicate he has some synthetic dysfunction, whether this is from his partial hepatectomy or somewhat relates to his portal vein thrombosis is unclear. I agree with lactulose and Xifaxan and need a workup for infection including SBP. We would cover empirically with antibiotics for now in light of possibility of that. There are no signs of bleeding. No signs of use of sedatives that would increase his encephalopathy. There are no signs of liver failure. 2. Hepatic dysfunction, at last admission, workup for viral and autoimmune etiologies was negative as far as impacting the liver. It seemed that the elevated liver enzymes are all related to his myositis, which initially was felt to be rhabdomyolysis, but then ultimately was felt to be polymyositis. This could be related to underlying malignancy. The muscle biopsy is pending. He needs further workup for underlying liver disease and we will make that complete with labs for tomorrow. 3. History of ascites. We will need to be re-imaged for possible ascites and tap for SBP. 4. History of portal vein thrombosis. I agree with continuing anticoagulation. We will go head and hold off on the CT with contrast for now and just get an ultrasound of his liver with Dopplers tomorrow morning to evaluate that. 5. Continue aggressive hydration. 6. We would hold diuretics at this time. We will follow along with you. Dr. Randolph will be on-call this weekend. Job ID: [id number]
[2020-03-15] MEDS: Sodium Chloride 0.9% 1,000 ML IV SCH ×3 (06:23→15:57)
[2020-03-15] MEDS: Albumin 25% 25 GM/100 ML BOT IVPB SCH ×3 (06:29→22:37)
[2020-03-15] MEDS: HumaLOG 300 UNITS/3 ML VIAL SC PRN ×4 (06:40→22:12)
--- NOTE | 2020-03-15 07:40 | PDOC.HOSPP ---
- Subjective Encounter Date: 03/15/20 Encounter Time: 09:30 Subjective: Patient was seen at the bedside for evaluation of his hepatic encephalopathy and UTI. For overnight events, patient reports abdominal pain. - Objective Vital Signs & Weight: Vital Signs (12 hours) Temp Pulse Resp BP Pulse Ox 03/15/20 04:26 98 F 101 H 14 115/60 98 03/14/20 19:55 97.7 F 114 H 16 118/67 99 Weight Admit Weight 163 lb 6.4 oz Weight 163 lb 6.4 oz I&O: 03/14/20 03/15/20 03/16/20 06:59 06:59 06:59 Intake Total 240 Balance 240 Result Diagrams: 03/15/20 04:28 03/15/20 02:47 Additional Labs: Accuchecks 03/15/20 03/14/20 03/14/20 05:43 20:44 16:46 POC Glucose 475 H 383 H 323 H 03/14/20 11:24 POC Glucose 220 H Microbiology 03/13/20 18:57 Venous blood - Left Arm Blood Culture - Preliminary Specimen has been received and culture in progress. No Growth to date. 03/13/20 18:57 Venous blood - Left Arm Blood Culture - Preliminary Enterobacter species 03/13/20 18:57 Venous blood - Left Arm Blood Culture - Preliminary Enterobacter species 03/13/20 16:48 Urine voided Urine Culture - Preliminary 03/13/20 16:48 Ulcer - Right Leg Bacterial Culture - Preliminary Staphylococcus aureus Gram Negative Willi EKG Reviewed by me: Yes (Ventricular pacing) Hospitalist ROS - Review of Systems Constitutional: denies: fever, chills, sweats, weakness, malaise, other Respiratory: denies: cough, dry, shortness of breath, hemoptysis, SOB with excertion, pleuritic pain, sputum, wheezing, other Cardiovascular: denies: chest pain, palpitations, orthopnea, paroxysmal noc. dyspnea, edema, light headedness, other Gastrointestinal: denies: nausea, vomiting, abdominal pain, diarrhea, constipation, melena, hematochezia, other - Medication Medications: Active Medications Generic Name Dose Route Start Last Admin Trade Name Freq PRN Reason Stop Dose Admin Albumin Human 25 gm 03/14/20 14:00 03/15/20 06:29 Albumin 25% IVPB 03/15/20 14:01 25 gm Q8HR MAI Administration Enoxaparin Sodium 70 mg 03/14/20 09:00 03/14/20 21:56 Lovenox SC 70 mg 0900,2100 MAI Administration Sodium Chloride 1,000 mls @ 75 mls/hr 03/14/20 15:15 03/15/20 06:23 Normal Saline 0.9% IV Not Given .[id number] MAI Meropenem 1 gm/ Device 50 mls @ 100 mls/hr 03/14/20 17:00 03/15/20 01:13 IVPB 50 mls 0100,0900,1700 MAI Administration Insulin Human Lispro 0 units 03/13/20 19:30 03/15/20 06:40 Humalog SC 10 unit .MODERATE SLIDING SC PRN Administration Moderate Correctional Scale Insulin Human Lispro 0 units 03/13/20 22:36 03/14/20 22:28 Humalog SC 5 unit .BEDTIME SLIDING SC PRN Administration Bedtime Correctional Scale Lactulose 20 gm 03/14/20 15:00 03/14/20 21:58 Lactulose PO Not Given TID MAI Rifaximin 550 mg 03/13/20 21:00 03/14/20 21:57 Xifaxan PO 550 mg BID MAI Administration Sodium Chloride 10 ml 03/14/20 21:00 03/14/20 21:57 Flush - Normal Saline IVF Not Given Q12HR MAI - Exam General Appearance: awake alert Heart: RRR, no murmur, no gallops, no rubs, normal peripheral pulses Respiratory: CTAB, no wheezes, no rales, no ronchi, normal chest expansion, no tachypnea, normal percussion Gastrointestinal: soft, non-tender, non-distended, normal bowel sounds, no palpable masses, no hepatomegaly, no splenomegaly, no bruit, no guarding, no rigidity Hosp A/P - Plan Toxic Metabolic Encephalopathy - multifactorial Hepatic Encephalopathy UTI Gen Anasarca BRODERICK on CKD 2 h/o ?Polymyositis - on steroids Hyperkalemia Hyponatremia Chronic Anemia Abn LFTs DM2 HTN h/o Portal vein thrombosis -on anticoagulation h/o Colon CA with mets PLAN: RUQ doppler - neg for PV thrombus Cont Empiric Atbx Cont Lactulose Cont Rifaximin Cont gentle IVF - reduce rate due to Anasarca IV Albumin Await ID input Cont steroids Cont anticoag Restart Lantus Cont sliding scale and other meds as above AM labs
[2020-03-15] MEDS ORDERED: Insulin Glargine 25 UNITS in Pre-Filled Syringe 1 EACH SC SCH (09:00)
--- NOTE | 2020-03-15 09:49 | ULT ---
HEPATIC ULTRASOUND: HISTORY: The patient has a history of portal vein thrombosis and ascites. FINDINGS: This exam was technically difficult due to bowel gas. It is very difficult to visualize structures. The liver is of increased echogenicity. Limited views of the portal and hepatic venous system were obtained, although flow patterns appear appropriate. The patient has undergone a right hepatectomy, gallbladder also having been removed. Mild ascites was noted. IMPRESSION: 1. Postop right hepatectomy change and cholecystectomy. Exam is very limited due to bowel gas. Por danny venous flow is visualized and appears to be appropriate direction. 2. Nonobstructed right kidney. 3. Coarse echogenic texture to the liver parenchyma. 4. Spleen which his within normal limits of size. POS: OFF
[2020-03-15] MEDS: predniSONE 20 MG TAB PO SCH ×2 (09:53→18:31)
[2020-03-15] MEDS: Rifaximin 550 MG TAB PO SCH ×2 (09:53→21:30)
[2020-03-15] MEDS: Enoxaparin Sodium 80 MG/0.8 ML SYRINGE SC SCH (09:54)
[2020-03-15 16:28] LABS: Hemoglobin 9.2 g/dL (14.0-18.0); Platelet Count 63 thou/uL (130-400)
[2020-03-15] MEDS ORDERED: Insulin Glargine 10 UNITS in Pre-Filled Syringe 1 EACH SC SCH (21:00)
[2020-03-16] MEDS: MEROPENEM 1 GM/50 ML 1 GM in Premix Bag 1 BAG IVPB SCH ×3 (01:35→18:15)
[2020-03-16 04:44] LABS: #Lymphocytes 0.4 thou/uL (1.20-3.40); #Monocytes 0.3 thou/uL (0.11-0.59); %Eosinophils 0.2 % (0.0-10.0); %Lymphocytes 5.8 % (21.0-51.0); %Monocytes 4.3 % (0.0-10.0); %Neutrophils 89.7 % (42.0-75.0); Hemoglobin 8.2 g/dL (14.0-18.0); Mean Corpuscular Hemoglobin 32.8 pg (27.0-31.0); Mean Corpuscular Volume 99.2 fL (78.0-98.0); Mean Platelet Volume 10.5 fL (7.4-10.4); Platelet Count 44 thou/uL (130-400); White Blood Cell (WBC) Count 6.7 thou/uL (4.8-10.8)
[2020-03-16 05:10] LABS: ALT (SGPT) 63 U/L (8-55); AST (SGOT) 53 U/L (5-34); Albumin 3.3 g/dL (3.4-4.8); Alkaline Phosphatase 254 U/L (40-110); Anion Gap 11 mmol/L (10-20); BUN (Urea Nitrogen) 37 mg/dL (8.4-25.7); Bilirubin, Total 2.2 mg/dL (0.2-1.2); Calc. Creatinine Clearance 94 mL/min (70-130); Calcium 8.8 mg/dL (7.8-10.44); Carbon Dioxide 28 mmol/L (23-31); Chloride 102 mmol/L (98-107); Estimated GFR-MDRD Greater than 90; Globulin 2.2 g/dL (2.4-3.5); Glucose 395 mg/dL (80-115); Magnesium 2.1 mg/dL (1.6-2.6); Phosphorus 1.8 mg/dL (2.3-4.7); Potassium 4.6 mmol/L (3.5-5.1); Protein, Total 5.5 g/dL (5.8-8.1); Sodium 136 mmol/L (136-145)
[2020-03-16] MEDS: Albumin 25% 25 GM/100 ML BOT IVPB SCH ×3 (06:29→21:42)
[2020-03-16] MEDS: HumaLOG 300 UNITS/3 ML VIAL SC PRN ×4 (06:30→21:13)
[2020-03-16] MEDS ORDERED: PHOS-NAK 1 PKT PACK PO SCH (06:30)
--- NOTE | 2020-03-16 08:08 | PRG ---
DATE OF SERVICE: 03/15/2020 SUBJECTIVE: This is a 64-year-old Latin-Turkmen male, with colon cancer, status post surgery, status post hepatectomy in direct access for single hepatic metastatic lesion. He was hospitalized here a month ago with abnormal LFTs and also portal vein thrombosis. Subsequently, was found to have positive PEDRO and DNA and was started on prednisone. He was with rhabdomyolysis. He was diagnosed what appears to be polymyositis. Apparently, he had a muscle biopsy done at [facility] recently and the biopsies are pending. At this time, he was brought in because of altered mental status and he was found to have an encephalopathy. He is started on rifaximin and also lactulose. He has recovered from his altered mental status. He is awake and communicative. Denies any abdominal pain, nausea, or vomiting. He had an abdominal sonogram done shows no portal vein thrombosis today. He is on Lovenox at the present time. OBJECTIVE: VITAL SIGNS: Afebrile, pulse is 112, blood pressure 120/60. GENERAL: He is awake and communicative. Denies abdominal pain. CARDIOVASCULAR SYSTEM: Normal heart sounds. LUNGS: Clear to auscultation. ABDOMEN: Soft and distended. Abdomen is nontender. He has a Band-Aid over the right lower extremity and the culture from the one over the right leg is growing Staphylococcus aureus and some gram-negative harish ___ . IMPRESSION: 1. Colon cancer, status post colectomy. 2. Right hepatectomy in direct access for hepatic metastatic lesion. 3. Portal vein thrombosis on admission. 4. Rhabdomyolysis. 5. History of polymyositis. 6. Altered mental status, more indicative of chronic liver disease, possibly liver cirrhosis . RECOMMENDATION: 1. Continue lactulose and rifaximin. 2. Continue the Lovenox for time being. 3. Encourage p.o. intake. Before the final culture report may need appropriate antibiotic therapy. Job ID: [id number]
--- NOTE | 2020-03-16 08:39 | CON ---
DATE OF CONSULTATION: 03/15/2020 REASON FOR CONSULTATION: Bacteremia, possible UTI in the setting of metastatic malignancy. HISTORY OF PRESENT ILLNESS: A 64-year-old, history of metastatic colon cancer to liver, who is being treated with chemotherapy through a port in the right subclavian position as well as type 2 diabetes. He did have a hemicolectomy and liver resection. He was diagnosed also with polymyositis with positive double-stranded DNA and been treated with high-dose corticosteroids. He was brought in by family members because of altered mental state. The patient's last admission was in January 2020 when he presented with generalized weakness. He had been on Eliquis for portal vein thrombosis and prednisone 50 mg in the morning. The patient had marked elevation in creatine kinase during the January admission, it peaked at 38,000. The dynamics of the CK elevation were such that it rapidly doubled from admission at 14,000 to 38,000 and then went down to 3000 by the time that the patient was discharged to rehab. At the time, the patient was on statin for hyperlipidemia and it is not clear if the diagnosis upon discharge was polymyositis or rhabdomyolysis. The laboratory findings are more consistent with rhabdomyolysis than polymyositis. A level greater than 100 times the reference level is typically rare in polymyositis, so he had been prescribed high-dose corticosteroids and was followed by a inserting press operator at [facility]. A muscle biopsy was not done. This time his vital signs showed BP 111/63, pulse 100, respirations 14, temperature 97.9, with O2 saturation 97%. He was encephalopathic. Lungs were clear. Abdomen is nontender. There was edema in lower extremities with some skin lesions which were more like areas of shallow ulcerations. The white cell count is 14,000, hemoglobin 11, platelets 85,000. INR 1.5. Potassium 3.5, CO2 is 23, creatinine 1.85, glucose 246, AST 66, ALT 93, bilirubin 2, alkaline phosphatase 391, ammonia 101. BNP was 131. The urinalysis with 21 to 50 wbc's. Chest x-ray with chronic changes. CT brain, no acute intracranial abnormalities. The patient had blood samples for cultures and 1/2 yielded Enterobacter species. Urine sample with 3 different gram negatives, yet to be identified and susceptibility tested. There is an ulcer of right leg which naturally has colonization with different pathogens, yet to be identified. One of them was Staph aureus. Those are likely to represent colonization of the surface of the skin rather than true pathogenic role. Currently, Mr. Boyer is more oriented. He speaks in Indonesian well and he denies any headaches. He is diffusely weak. He has no visual symptoms, sore throat, odynophagia, dysphagia. No dyspnea. No abdominal pain. He is voiding in the urinal and in the diaper. Denies diarrhea. He is diffusely weak and is unable to ambulate. He is able to move his extremities in the bed, but with quite a bit of weakness. PAST MEDICAL HISTORY: Colon cancer, metastatic to liver with partial resection, partial colectomy with chemotherapy; history of a marked elevation in CPK, which is more consistent with rhabdomyolysis than with polymyositis. The elevation in the CPK was more than 100 times the upper limits of level of normal CPK and this is very rarely seen in polymyositis. Also, there is a rapid rise and fall of the CK, which is more consistent with rhabdomyolysis, possibly associated with statin use. I reviewed Dr. Arce's note, his inserting press operator at [facility]. He also was not feeling that this represented autoimmune or polymyositis. The autoimmune antibody panel is not typical of polymyositis which usually does not have elevated [id number]-[id number] DNA. A muscle biopsy was done and the results of that are not yet back from reviewing the [facility] data. There is a history of a thoracentesis and paracentesis in the past and portal vein thrombosis, for which he is on Eliquis. SURGICAL HISTORY: Hemicolectomy, partial liver resection, pacemaker placement, and port placement for chemotherapy. FAMILY HISTORY: Colon cancer and diabetes. SOCIAL HISTORY: Lives in [place] with family. Never smoker. Does not drink alcoholic beverages. ALLERGIES: NONE. CURRENT MEDICATION LIST: 1. Albumin. 2. Enoxaparin. 3. Insulin. 4. Lactulose. 5. Meropenem. 6. Ondansetron. 7. Prednisone. 8. Rifaximin. PHYSICAL EXAMINATION: VITAL SIGNS: The patient's temperature has been normal in the hospital. His BP 114/61, pulse 106, respirations 15 to 20, O2 saturation 99. SKIN: Shows multiple areas of kind of punched-out ulcerations with hyperpigmentation in the lower extremities. There is edema. There are some areas of bruising. Has a peripheral IV access. No Beyer catheter. No lymphadenopathy noted. Ocular movements conjugate. Oral cavity with numerous missing teeth, only a few remaining with some decay and gum disease. NECK: Supple. No jugular vein distention. LUNGS: Symmetric air entry. No crackles or wheezing. HEART: S1, S2. Regular rate. No S3, S4. Port in the right subclavian position with no inflammatory changes. ABDOMEN: Moderate distention, question of hepatomegaly. No splenomegaly. No bladder distention. No tenderness. EXTREMITIES: There is 3+ edema in lower extremities. His pulses are difficult to evaluate in the dorsalis pedis. He is able to move all 4 extremities but is diffusely weak. Plantar responses are indifferent. He has hyporeflexia. NEUROLOGIC: He is awake. He knows his name. He knew where he was. He has fairly decent recollection of events. Speech appears to be normal. LATEST LABORATORY DATA: White cell count is at 11, hemoglobin 8.8, platelets 58,000 with 96% neutrophils, 2% bands. INR 1.5. Sodium 137, creatinine 1.3, bilirubin 2.2, AST 59, ALT 72, alkaline phosphatase 306, albumin 2.7. Urinalysis with 21 to 50 wbc's. COVID was not detected. The patient had an abdomen ultrasound on March 15 and it showed postop right hepatectomy with cholecystectomy, right kidney is nonobstructed, coarse echogenic texture of liver parenchyma, spleen within normal limits. The patient had a PET scan done in June 2019, which showed neoplasm, right colon metastatic lesion, right liver lobe. I guess this was the part of the workup for the intervention with the attempt at cure. ASSESSMENT: 1. Colon cancer with liver mets, status post partial colectomy and partial hepatectomy and chemotherapy. 2. Rhabdomyolysis, probably related to statin. 3. Positive double-stranded DNA antibody test. 4. Weakness. 5. Enterobacter aerogenes or cloacae bacteremia, pending susceptibility test probably from urinary tract. DISCUSSION: The patient has had chemo and curative surgical procedures to address his colon cancer with metastases to liver. Frequently, those interventions are curative or result in protracted remission. I do not know what the status of his latest evaluation by Oncology is. According to Amina Chaparro's note from 07/24, his cancer is in remission. The diagnosis of polymyositis is highly questionable. The time course of the increase and decrease in the CPK in January of this year is not consistent with polymyositis. The levels of elevation of CPK are much more consistent with rhabdomyolysis. The presence of wolo-xjybdh-fysqpals DNA is not typical of polymyositis and usually seen in systemic lupus erythematosus. The muscle biopsy is pending. The weakness the patient is presenting is in part or most likely related to the dose of corticosteroids plus the residual effect of the rhabdomyolysis that occurred probably due to the statin rather than polymyositis. In that regard, I would probably start tapering the dose of corticosteroids. The patient has a bacteremia from Enterobacter, most likely secondary to urinary tract infection. I would verify proper postvoid residuals and continue meropenem. Enterobacter species usually has an inducible beta lactamase and treatment of severe enterobacter infections has a higher rate of failure with cephalosporins than with carbapenems, so would continue meropenem unless the strain is found to be susceptible to quinolones. In that case, I would transition to quinolone, verify postvoid residuals as well. Job ID: [id number]
[2020-03-16] MEDS: predniSONE 20 MG TAB PO SCH ×2 (08:41→16:39)
[2020-03-16] MEDS: Rifaximin 550 MG TAB PO SCH ×2 (08:41→21:12)
[2020-03-16] MEDS: Insulin Glargine 35 UNITS in Pre-Filled Syringe 1 EACH SC SCH (08:41)
--- NOTE | 2020-03-16 10:12 | PDOC.HOSPP ---
- Subjective Encounter Date: 03/16/20 Encounter Time: 12:45 Subjective: Patient seen and examined for Sepsis. Feeling somewhat better. No cough/SOB. Postvoid >800 per RN. No other complaints. No overnight events - Objective Vital Signs & Weight: Vital Signs (12 hours) Temp Pulse Resp BP Pulse Ox 03/16/20 07:44 98.7 F 113 H 17 126/67 98 03/16/20 03:43 98.7 F 110 H 19 121/74 96 03/16/20 01:18 97 Weight Admit Weight 163 lb 6.4 oz Weight 163 lb 6.4 oz I&O: 03/15/20 03/16/20 03/17/20 06:59 06:59 06:59 Intake Total 240 2580 Output Total 575 Balance 240 2004 Result Diagrams: 03/16/20 04:03 03/16/20 04:03 Additional Labs: Accuchecks 03/16/20 03/15/20 03/15/20 05:58 21:31 18:15 POC Glucose 389 H 375 H 431 H 03/15/20 11:37 POC Glucose 492 H Microbiology 03/13/20 18:57 Venous blood - Left Arm Blood Culture - Preliminary NO GROWTH AT 48 HOURS 03/13/20 18:57 Venous blood - Left Arm Blood Culture - Preliminary Enterobacter species 03/13/20 16:48 Urine voided Urine Culture - Preliminary Gram Negative Willi Gram Negative Willi#2 Gram Negative Willi#3 03/13/20 16:48 Ulcer - Right Leg Bacterial Culture - Preliminary Staphylococcus aureus Gram Negative Willi Laboratory Tests 03/16/20 04:03 Phosphorus 1.8 L Total Bilirubin 2.2 H AST 53 H ALT 63 H Alkaline Phosphatase 254 H EKG Reviewed by me: Yes (Tele ) Hospitalist ROS - Review of Systems Respiratory: denies: cough, dry, shortness of breath, hemoptysis, SOB with excertion, pleuritic pain, sputum, wheezing, other Cardiovascular: denies: chest pain, palpitations, orthopnea, paroxysmal noc. dyspnea, edema, light headedness, other Gastrointestinal: denies: nausea, vomiting, abdominal pain, diarrhea, constipation, melena, hematochezia, other - Medication Medications: Active Medications Generic Name Dose Route Start Last Admin Trade Name Freq PRN Reason Stop Dose Admin Albumin Human 25 gm 03/15/20 22:00 03/16/20 06:29 Albumin 25% IVPB 03/16/20 22:01 25 gm Q8HR MAI Administration Enoxaparin Sodium 70 mg 03/14/20 09:00 03/15/20 09:54 Lovenox SC 70 mg 0900,2100 MAI Administration Meropenem 1 gm/ Device 50 mls @ 100 mls/hr 03/14/20 17:00 03/16/20 08:42 IVPB 50 mls 0100,0900,1700 MAI Administration Sodium Chloride 1,000 mls @ 30 mls/hr 03/15/20 14:22 03/15/20 15:57 Normal Saline 0.9% IV Not Given .Q24H MAI Insulin Glargine 35 units/ 0.35 mls @ 0 mls/hr 03/16/20 09:00 03/16/20 08:41 Miscellaneous Medication SC 0.35 mls QAM MAI Administration Insulin Human Lispro 0 units 03/13/20 19:30 03/16/20 06:30 Humalog SC 10 unit .MODERATE SLIDING SC PRN Administration Moderate Correctional Scale Insulin Human Lispro 0 units 03/13/20 22:36 03/15/20 22:12 Humalog SC 5 unit .BEDTIME SLIDING SC PRN Administration Bedtime Correctional Scale Lactulose 20 gm 03/14/20 15:00 03/16/20 08:41 Lactulose PO 20 gm TID MAI Administration Prednisone 40 mg 03/15/20 08:00 03/16/20 08:41 Prednisone PO 40 mg BID-WM MAI Administration Rifaximin 550 mg 03/13/20 21:00 03/16/20 08:41 Xifaxan PO 550 mg BID MAI Administration Sodium Chloride 10 ml 03/14/20 21:00 03/16/20 08:42 Flush - Normal Saline IVF Not Given Q12HR MAI - Exam General Appearance: NAD Neck: supple, no JVD Heart: no gallops, no rubs Respiratory: no wheezes, no ronchi Gastrointestinal: non-tender, no guarding, no rigidity Extremities: no cyanosis Hosp A/P - Plan DVT proph w/SCDs Toxic Metabolic Encephalopathy Hepatic Encephalopathy Sepsis due to Enterobacter UTI with bacteremia -POA BRODERICK on CKD 2 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 Hyperkalemia Hyponatremia Hypophosphatemia Abn LFTs DM2 - uncontrolled HTN h/o Portal vein thrombosis -on Eliquis at home -Repeat USG - no PV thrombosis h/o Colon CA with mets Thrombocytopenia Urinary retention(postvoid residual >800) PLAN: 03/16 ID input appreciated Cont Meropenem - Resistant to Ceftriaxone Place thakur Replace Phosphorus Start tapering Prednisone per ID - reduce to 60 mg daily Lovenox on hold due to Anemia/thrombocytopenia Increase Lantus to 35qam and 25 qpm Change sliding scale to aggressive - Also add 5 units TID with aggressive scale Add low dose Inderal due to persistent tachycardia Cont other meds AM labs 03/15 Cont Lactulose with Rifaximin Cont Neurochecks Cont gentle IVF Cont steroids Cont anticoag Cont sliding scale AM labs including ammonia Case d/w GI Cont other meds as above
[2020-03-16] MEDS: HumaLOG 300 UNITS/3 ML VIAL SC SCH ×2 (11:27→16:38)
[2020-03-16] MEDS: Sodium Chloride 0.9% 1,000 ML IV SCH (13:27)
[2020-03-16] MEDS ORDERED: Propranolol 10 MG TAB PO SCH (15:30)
[2020-03-16] MEDS: PHOS-NAK 1 PKT PACK PO SCH ×2 (15:38→21:12)
[2020-03-16 17:13] LABS: EliA Vaculitis New Method **** NEW METHOD ****; Mitochondrial Ab 1.8 U/mL (<4 Negative)
[2020-03-16] MEDS: Insulin Glargine 25 UNITS in Pre-Filled Syringe 1 EACH SC SCH (21:11)
[2020-03-16] MEDS: Propranolol 10 MG TAB PO SCH (21:12)
[2020-03-17] MEDS: HumaLOG 300 UNITS/3 ML VIAL SC PRN ×2 (00:34→03:43)
[2020-03-17] MEDS: MEROPENEM 1 GM/50 ML 1 GM in Premix Bag 1 BAG IVPB SCH ×3 (00:34→16:08)
[2020-03-17 04:29] LABS: #Lymphocytes 0.6 thou/uL (1.20-3.40); #Monocytes 0.3 thou/uL (0.11-0.59); #Neutrophils 4.8 thou/uL (1.40-6.50); %Eosinophils 0.4 % (0.0-10.0); %Lymphocytes 10.8 % (21.0-51.0); %Neutrophils 83.7 % (42.0-75.0); Mean Corpuscular HGB CONC 32.3 g/dL (32.0-36.0); Mean Corpuscular Hemoglobin 32.1 pg (27.0-31.0); Mean Corpuscular Volume 99.1 fL (78.0-98.0); Mean Platelet Volume 10.3 fL (7.4-10.4); Platelet Count 55 thou/uL (130-400); RBC Distribution Width 15.1 % (11.5-14.5); Red Blood Cell (RBC) Count 2.51 mill/uL (4.70-6.10); White Blood Cell (WBC) Count 5.8 thou/uL (4.8-10.8)
[2020-03-17 04:33] LABS: INR-International Normal Ratio 1.3; PTT 28.4 sec (22.9-36.1); Prothrombin Time 16.1 sec (12.0-14.7)
[2020-03-17 04:45] LABS: ALT (SGPT) 57 U/L (8-55); AST (SGOT) 57 U/L (5-34); Albumin 3.3 g/dL (3.4-4.8); Alkaline Phosphatase 215 U/L (40-110); Anion Gap 8 mmol/L (10-20); BUN (Urea Nitrogen) 31 mg/dL (8.4-25.7); Bilirubin, Total 2.3 mg/dL (0.2-1.2); Calc. Creatinine Clearance 119 mL/min (70-130); Calcium 8.9 mg/dL (7.8-10.44); Carbon Dioxide 28 mmol/L (23-31); Chloride 105 mmol/L (98-107); Estimated GFR-MDRD Greater than 90; Globulin 1.7 g/dL (2.4-3.5); Glucose 225 mg/dL (80-115); Magnesium 2.1 mg/dL (1.6-2.6); Potassium 4.4 mmol/L (3.5-5.1); Sodium 137 mmol/L (136-145)
[2020-03-17] MEDS: Sodium Chloride 0.9% 1,000 ML IV SCH (07:10)
--- NOTE | 2020-03-17 07:19 | PRG ---
DATE OF SERVICE: 03/16/2020 SUBJECTIVE: This is a 64-year-old Latin-[place] male with colon cancer, status post surgery. He also had a single hepatic removal and partial hepatectomy in direct access. The patient comes with altered mental status and findings of what appears to be . The patient has been taking and lactulose. Mental status is back to normal. He is awake . He tells me the only thing is diarrhea. He has had 3 watery stools . He is on lactulose. tolerating diet . He has been seen by Dr. Chuy Gustafson abdominal sonogram done yesterday showed no evidence of portal vein . OBJECTIVE: GENERAL: Appears comfortable . VITAL SIGNS: , pulse CARDIOVASCULAR: Normal heart sounds. LUNGS: . LABORATORY DATA: . Chem 7 , bilirubin RECOMMENDATIONS: 1. Continue lactulose . 2. Increase p.o. intake. 3. Continue . Job ID: [id number]
[2020-03-17] MEDS: Insulin Glargine 35 UNITS in Pre-Filled Syringe 1 EACH SC SCH (08:31)
[2020-03-17] MEDS: HumaLOG 300 UNITS/3 ML VIAL SC SCH (08:31)
[2020-03-17] MEDS: Propranolol 10 MG TAB PO SCH ×3 (08:31→21:45)
[2020-03-17] MEDS: predniSONE 20 MG TAB PO SCH ×2 (08:32→16:08)
[2020-03-17] MEDS: Rifaximin 550 MG TAB PO SCH ×2 (08:32→21:38)
[2020-03-17] MEDS: PHOS-NAK 1 PKT PACK PO SCH ×3 (08:33→21:38)
[2020-03-17] MEDS ORDERED: HumaLOG 300 UNITS/3 ML VIAL SC PRN (10:29)
--- NOTE | 2020-03-17 10:30 | PDOC.HOSPP ---
- Subjective Encounter Date: 03/17/20 Encounter Time: 14:00 Subjective: Patient seen and examined for sepsis . No new complaints. No overnight events. Patient reports no pain. - Objective Vital Signs & Weight: Vital Signs (12 hours) Temp Pulse Resp BP Pulse Ox 03/17/20 07:02 97.9 F 93 12 142/76 H 97 03/17/20 04:00 98.6 F 87 20 136/72 98 03/17/20 00:44 97 Weight Admit Weight 163 lb 6.4 oz Weight 163 lb 6.4 oz I&O: 03/16/20 03/17/20 03/18/20 06:59 06:59 06:59 Intake Total 2580 1620 Output Total 575 1200 Balance 2004 420 Result Diagrams: 03/17/20 04:09 03/17/20 04:09 Additional Labs: Accuchecks 03/17/20 03/17/20 03/17/20 07:55 03:41 00:23 POC Glucose 145 H 242 H 287 H 03/16/20 03/16/20 03/16/20 20:53 16:15 12:56 POC Glucose 253 H 365 H 435 H 03/16/20 09:25 POC Glucose 390 H Laboratory Tests 03/17/20 04:09 Phosphorus 2.0 L EKG Reviewed by me: Yes (Tele SR earlier) Hospitalist ROS - Review of Systems Constitutional: denies: fever, chills, sweats, weakness, malaise, other Respiratory: denies: cough, dry, shortness of breath, hemoptysis, SOB with excertion, pleuritic pain, sputum, wheezing, other Cardiovascular: denies: chest pain, palpitations, orthopnea, paroxysmal noc. dyspnea, edema, light headedness, other Gastrointestinal: denies: nausea, vomiting, abdominal pain, diarrhea, constipation, melena, hematochezia, other - Medication Medications: Active Medications Generic Name Dose Route Start Last Admin Trade Name Freq PRN Reason Stop Dose Admin Enoxaparin Sodium 70 mg 03/14/20 09:00 03/15/20 09:54 Lovenox SC 70 mg 0900,2100 MAI Administration Meropenem 1 gm/ Device 50 mls @ 100 mls/hr 03/14/20 17:00 03/17/20 08:33 IVPB 50 mls 0100,0900,1700 MAI Administration Sodium Chloride 1,000 mls @ 30 mls/hr 03/15/20 14:22 03/17/20 07:10 Normal Saline 0.9% IV 1,000 mls .Q24H MAI Administration Insulin Glargine 35 units/ 0.35 mls @ 0 mls/hr 03/16/20 09:00 03/17/20 08:31 Miscellaneous Medication SC 0.35 mls QAM MAI Administration Insulin Glargine 25 units/ 0.25 mls @ 0 mls/hr 03/16/20 21:00 03/16/20 21:11 Miscellaneous Medication SC 0.25 mls HS MAI Administration Insulin Human Lispro 0 units 03/13/20 22:36 03/17/20 03:43 Humalog SC 2 unit .BEDTIME SLIDING SC PRN Administration Bedtime Correctional Scale Insulin Human Lispro 0 units 03/16/20 11:00 03/16/20 16:39 Humalog SC 13 unit .AGGRESSIVE SLIDING PRN Administration Aggressive Correctional Scale Miscellaneous Medication 1 pkt 03/16/20 15:00 03/17/20 08:33 Phos-Nak PO 03/18/20 15:01 1 pkt TID MAI Administration Pantoprazole Sodium 40 mg 03/17/20 09:00 03/17/20 08:32 Protonix PO 40 mg DAILY MAI Administration Prednisone 20 mg 03/16/20 17:00 03/16/20 16:39 Prednisone PO 20 mg QPM-WM MAI Administration Prednisone 40 mg 03/17/20 08:00 03/17/20 08:32 Prednisone PO 40 mg QAM-WM MAI Administration Propranolol HCl 10 mg 03/16/20 21:00 03/17/20 08:31 Inderal PO 10 mg TID MAI Administration Rifaximin 550 mg 03/13/20 21:00 03/17/20 08:32 Xifaxan PO 550 mg BID MAI Administration Sodium Chloride 10 ml 03/14/20 21:00 03/17/20 08:32 Flush - Normal Saline IVF Not Given Q12HR MAI - Exam General Appearance: awake alert Heart: RRR, no murmur, no gallops, no rubs, normal peripheral pulses Respiratory: CTAB, no wheezes, no rales, no ronchi, normal chest expansion, no tachypnea, normal percussion Gastrointestinal: soft, non-tender, non-distended, normal bowel sounds, no palpable masses, no hepatomegaly, no splenomegaly, no bruit, no guarding, no rigidity Psychiatric: normal affect, A&O x 3 Hosp A/P - Plan DVT proph w/SCDs Toxic Metabolic Encephalopathy Hepatic Encephalopathy Sepsis due to Enterobacter UTI with bacteremia -POA BRODERICK on CKD 2 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 Hospice eval 03/16 ID input appreciated Cont Meropenem - Resistant to Ceftriaxone Place thakur Replace Phosphorus Start tapering Prednisone per ID - reduce to 60 mg daily Lovenox on hold due to Anemia/thrombocytopenia Increase Lantus to 35qam and 25 qpm Change sliding scale to aggressive - Also add 5 units TID with aggressive scale Add low dose Inderal due to persistent tachycardia Cont other meds AM labs 03/15 Cont Lactulose with Rifaximin Cont Neurochecks Cont gentle IVF Cont steroids Cont anticoag Cont sliding scale AM labs including ammonia Case d/w GI Cont other meds as above
--- NOTE | 2020-03-17 10:33 | PRG ---
DATE OF SERVICE: 03/17/2020 SUBJECTIVE: Mr. Boyer is not complaining of any abdominal pain. His mental status has been clear. He does complain of diarrhea. He had loose stools throughout the day yesterday and has had 2 loose bowel movements so far today. He is receiving lactulose t.i.d. as well as meropenem. OBJECTIVE: VITAL SIGNS: Temperature 97.9, pulse 93, blood pressure 142/76, and 97% oxygen saturation on room air. GENERAL: No acute distress. HEART: Regular rate and rhythm. LUNGS: Clear to auscultation bilaterally. ABDOMEN: Nondistended. Bowel sounds present. Soft, nontender to palpation. EXTREMITIES: No peripheral edema. LABORATORY STUDIES: WBC 5.8, hemoglobin 8.0, and platelets 55. INR 1.3. Sodium 137, potassium 4.4, BUN 31, creatinine 0.66, glucose 145, total bilirubin 2.3, alkaline phosphatase 215, AST 57, ALT 57, and albumin 3.3. Blood culture is showing Enterobacter. Urine culture is growing Enterobacter. ASSESSMENT AND PLAN: 1. Colorectal cancer with solitary metastasis to the liver, now status post resection of the mass and liver resection in November of this year, right hepatectomy. 2. My understanding is that the patient is considered to be in remission following treatment with surgery and chemotherapy. 3. Toxic metabolic encephalopathy. The patient did have elevated ammonia level on admission with rifaximin and lactulose. His mental status has returned to baseline. There is no evidence of altered mentation today. 4. Diarrhea. This is the patient's primary complaint to me today. Note, he has been receiving lactulose t.i.d. as well as rifaximin. Try backing off the lactulose to b.i.d. dosing today. Going forward, titrate lactulose to 2 to 3 bowel movements per day. If the patient is having worsening diarrhea over the next few days, consider antibiotic-associated diarrhea, consider checking for Clostridium difficile. For now, we will back off the lactulose. 5. Portal vein thrombosis. The patient had been on anticoagulation as an outpatient. New ultrasound this admission shows appropriate portal and hepatic venous flow patterns. Anticoagulation is currently being held due to anemia and thrombocytopenia. Job ID: [id number]
[2020-03-17] MEDS ORDERED: Tamsulosin HCl 0.4 MG CAP PO SCH (21:00)
[2020-03-17] MEDS: Insulin Glargine 25 UNITS in Pre-Filled Syringe 1 EACH SC SCH (21:38)
[2020-03-18] MEDS: MEROPENEM 1 GM/50 ML 1 GM in Premix Bag 1 BAG IVPB SCH ×2 (01:15→08:58)
[2020-03-18 06:26] LABS: #Lymphocytes 0.7 thou/uL (1.20-3.40); #Monocytes 0.3 thou/uL (0.11-0.59); %Basophils 0.1 % (0.0-1.0); %Eosinophils 0.1 % (0.0-10.0); %Lymphocytes 12.1 % (21.0-51.0); %Monocytes 4.7 % (0.0-10.0); Hemoglobin 8.6 g/dL (14.0-18.0); Mean Corpuscular HGB CONC 32.4 g/dL (32.0-36.0); Mean Corpuscular Volume 98.9 fL (78.0-98.0); Mean Platelet Volume 11.1 fL (7.4-10.4); Platelet Count 63 thou/uL (130-400); RBC Distribution Width 15.3 % (11.5-14.5); Red Blood Cell (RBC) Count 2.68 mill/uL (4.70-6.10); White Blood Cell (WBC) Count 6.1 thou/uL (4.8-10.8)
[2020-03-18 06:50] LABS: ALT (SGPT) 88 U/L (8-55); AST (SGOT) 87 U/L (5-34); Albumin 2.8 g/dL (3.4-4.8); Alkaline Phosphatase 299 U/L (40-110); Anion Gap 11 mmol/L (10-20); BUN (Urea Nitrogen) 28 mg/dL (8.4-25.7); Bilirubin, Total 2.5 mg/dL (0.2-1.2); Calc. Creatinine Clearance 110 mL/min (70-130); Calcium 8.3 mg/dL (7.8-10.44); Carbon Dioxide 24 mmol/L (23-31); Chloride 104 mmol/L (98-107); Estimated GFR-MDRD Greater than 90; Glucose 331 mg/dL (80-115); Potassium 5.1 mmol/L (3.5-5.1); Protein, Total 4.8 g/dL (5.8-8.1); Sodium 134 mmol/L (136-145)
[2020-03-18 07:08] VITALS: BP 123/77; TEMP 98.2
[2020-03-18] MEDS: Propranolol 10 MG TAB PO SCH (08:57)
[2020-03-18] MEDS: predniSONE 20 MG TAB PO SCH (08:57)
[2020-03-18] MEDS: Rifaximin 550 MG TAB PO SCH (08:57)
[2020-03-18] MEDS ORDERED: Insulin Glargine 45 UNITS in Pre-Filled Syringe 1 EACH SC SCH (09:00)
--- NOTE | 2020-03-18 11:59 | PRG ---
DATE OF SERVICE: 03/18/2020 SUBJECTIVE: Mr. Boyer is alert and oriented. He offers no complaint. He wants to go home. He has not had a bowel movement overnight or this morning. OBJECTIVE: VITAL SIGNS: Temperature is 98.2, blood pressure 123/77, pulse of 81. GENERAL: He is alert, in no distress. He is oriented x3. HEENT: Head exam shows mildly icteric sclerae. Oropharynx is clear. NECK: Supple. CV: Shows normal S1 and S2. Regular rate and rhythm. CHEST: Shows breath sounds. ABDOMEN: Soft. Mildly protuberant, but no tympany. He has active bowel sounds. Nontender. EXTREMITIES: Exam shows some pretibial and pedal edema, more so on the left than the right. LABORATORY DATA: Sodium 134, potassium 5.1, chloride 104, CO2 of 24, creatinine 0.71, BUN of 28, bilirubin 2.5, AST of 87, ALT of 88, alkaline phosphatase 299. WBC 6.1, hemoglobin 8.6, platelet count of 63. ASSESSMENT: 1. Hepatic encephalopathy, clinically resolved with normalization of venous ammonia level. The patient has not had any previous diagnosis of cirrhosis. This could be partly combination of toxic metabolic encephalopathy in the background of having previous partial hepatectomy. 2. History of colon cancer with liver metastases, status post colon resection and partial hepatectomy. 3. Portal vein thrombosis, resolved with Doppler ultrasound showing patent flow. 4. Overall, very stable from GI standpoint. 5. Possible urosepsis, on meropenem. RECOMMENDATIONS: 1. Continue with lactulose b.i.d. and rifaximin 550 mg b.i.d. 2. The patient does not need further anticoagulation with normal flow on Doppler ultrasound without any evidence of portal vein thrombosis. 3. Placement issue, the patient wants to go home. Job ID: [id number]
--- NOTE | 2020-03-18 13:37 | DIS ---
DATE OF ADMISSION: 03/13/2020 DATE OF DISCHARGE: 03/18/2020 DISCHARGE DISPOSITION: Home with home health care through [facility]. ALLERGIES: NO KNOWN DRUG ALLERGIES. DISCHARGE MEDICATIONS: 1. Lactulose 20 mg b.i.d. The patient was advised to titrate for 3 to 4 bowel movements daily. 2. Levaquin 500 mg daily for 10 days. 3. Protonix 40 mg daily. 4. Prednisone taper. Dr. Gustafson recommended to start tapering prednisone until the diagnosis is confirmed. He was reduced to 60 mg daily. 5. Inderal 10 mg 3 times a day. 6. Rifaximin 550 mg b.i.d. 7. Flomax 0.4 mg at bedtime. 8. The patient was advised to change Lasix to p.r.n. All other home medications were left unchanged. He was also advised to hold spironolactone for now. DISCHARGE INSTRUCTIONS: 1. Repeat basic metabolic profile after 1 week was recommended. Primary care physician advised to follow. 2. The patient was also advised to hold anticoagulation for now per GI recommendation. 3. The patient was advised to monitor weight on a daily basis and to maintain a log. The patient was seen and examined on the day of discharge. Denies any new complaints. Mentation is back to baseline. He denies any pain at this time. No new focal deficit. The patient was advised to follow up with Dr. Cr Link in less than a week. Follow up with Dr. Ambrose as scheduled. Follow up with Dr. Kraft due to urinary retention. The patient has a followup on March 27, 2020 at 10 a.m. BRIEF HOSPITAL COURSE: The patient is a 64-year-old male with colon cancer with liver metastasis; diabetes mellitus, type 2; hypertension; and ascites in the past, presented to the hospital with altered mentation. Please refer to the history and physical dated March 13, [address] Calderón for further details. The patient was admitted to the hospital with a diagnosis of hepatic encephalopathy. He was found to have ammonia of 101. His mentation significantly improved with lactulose and rifaximin. Lactulose dose was gradually reduced. He was evaluated by Gastroenterology Service. He also has a history of portal vein thrombosis that was diagnosed last admission. The abdominal ultrasound with Doppler was repeated this admission, which was negative for portal vein thrombosis. Anticoagulation has been discontinued for this reason per GI recommendation. He also has a very high risk of bleeding due to significant thrombocytopenia with platelets of 44 two days ago. The patient was found to have leukocytosis with left shift on admission. He had urinalysis, urine culture, and blood culture sent on admission. His urinalysis showed 21 to 50 wbc's with 4+ bacteria. His COVID-19 testing was negative. His urine culture and one of two blood cultures were positive for Enterobacter sensitive to Levaquin. He was placed on meropenem during this hospital stay, since admission, that will be changed to Levaquin for total of 10 days per Infectious Disease's recommendation. He was evaluated by Infectious Disease this admission. The patient has a history of colon cancer with liver metastasis and was evaluated by Oncology Service as well this admission. The patient is stable for discharging home with home health care. I discussed the plan of care with his , Elizabeth, in detail, who stated understanding. FINAL DIAGNOSES: 1. Toxic metabolic encephalopathy, multifactorial. 2. Hepatic encephalopathy, resolved. 3. Sepsis due to Enterobacter urinary tract infection with Enterobacter bacteremia. 4. Acute kidney injury on chronic kidney disease, stage 2. 5. History of questionable polymyositis. Biopsies are still pending. Dr. Gustafson recommended to start tapering prednisone. 6. Hyperkalemia, on admission, improved. 7. Hyponatremia. 8. Hypophosphatemia. 9. Abnormal LFTs. 10. Diabetes mellitus, type 2. 11. Hypertension. 12. History of portal vein thrombosis last admission. This admission, there was no thrombosis. Anticoagulation discontinued per GI recommendation. 13. History of colon cancer with metastasis. 14. Thrombocytopenia. 15. Urinary retention. His postvoid residual was greater than 800 mL. The Beyer catheter was placed on 17 March. Time coordinating the discharge of this patient was 34 minutes. Job ID: [id number]
== END 2020-03-18 14:01 | disposition home health service (06) | DRG 871 ==
LOC: ERS 15:36 → OBSVTOIN 18:40 → 2NO 18:40 → T4-B 03-17 11:10
PROVIDERS: ADMIT Internal Medicine; ATTEND Internal Medicine
DX: A41.59 Other Gram-negative sepsis (principal); K72.00 Acute and subacute hepatic failure without coma; G92 Toxic encephalopathy; R40.2222 Coma scale, best verbal response, incomprehensible words, at arrival to emergency department; N17.9 Acute kidney failure, unspecified; E87.1 Hypo-osmolality and hyponatremia; N39.0 Urinary tract infection, site not specified; M62.82 Rhabdomyolysis; Z20.828 Contact with and (suspected) exposure to other viral communicable diseases; N18.2 Chronic kidney disease, stage 2 (mild); E87.5 Hyperkalemia; E83.39 Other disorders of phosphorus metabolism; E11.22 Type 2 diabetes mellitus with diabetic chronic kidney disease; I12.9 Hypertensive chronic kidney disease with stage 1 through stage 4 chronic kidney disease, or unspecified chronic kidney disease; L89.899 Pressure ulcer of other site, unspecified stage; E86.0 Dehydration; R40.2142 Coma scale, eyes open, spontaneous, at arrival to emergency department; R40.2362 Coma scale, best motor response, obeys commands, at arrival to emergency department; D63.1 Anemia in chronic kidney disease; E11.65 Type 2 diabetes mellitus with hyperglycemia; K74.60 Unspecified cirrhosis of liver; D69.6 Thrombocytopenia, unspecified; R19.7 Diarrhea, unspecified; Z79.84 Long term (current) use of oral hypoglycemic drugs; Z79.899 Other long term (current) drug therapy; Z79.52 Long term (current) use of systemic steroids; Z86.12 Personal history of poliomyelitis; Z79.4 Long term (current) use of insulin; Z79.01 Long term (current) use of anticoagulants; Z90.49 Acquired absence of other specified parts of digestive tract; Z95.0 Presence of cardiac pacemaker; Z85.038 Personal history of other malignant neoplasm of large intestine; Z85.05 Personal history of malignant neoplasm of liver; Z86.718 Personal history of other venous thrombosis and embolism
CPT/HCPCS: 36415; 36416; 70450; 71045; 76705; 80048; 80053; 81003; 81015; 82103; 82140; 82330; 82378; 82550; 82553; 82803; 83516; 83735; 83880; 84100; 84443; 84484; 85025; 85610; 85730; 87040; 87070; 87077; 87086; 87149; 87186; 87205; 87635; 93005; 96365; 96375; J0696; J1650; J1815; J2185; J2405; J2930; J7512; P9047; U0003